=== PATIENT | female | born 1965 | race African-American/Black ===

== ENCOUNTER 2019-03-06 15:39 | Emergency (ER) | payer BC | END 2019-03-06 16:39 | disposition left against medical advice (07) | LOC: ERS 15:39 | DX: Z53.21 Procedure and treatment not carried out due to patient leaving prior to being seen by health care provider (principal) ==

== ENCOUNTER 2019-03-06 17:00 | Emergency (ER) | payer BC, SELFPAY ==
[2019-03-06] MEDS ORDERED: Ketorolac Tromethamine 60 MG/2 ML VIAL ONE (17:36)
--- NOTE | 2019-03-06 18:04 | RAD ---
LEFT SHOULDER RADIOGRAPHS THREE VIEWS: 03/06/2019 PROVIDED CLINICAL HISTORY: Left shoulder pain. FINDINGS: There is no evidence for fracture or other acute osseous abnormality. The glenohumeral relationship appears normal. The subacromial space appears preserved. The visualized left lung field appears fabiola ar. IMPRESSION: No evidence for an acute osseous abnormality. If there is persistent clinical concern, conservative management and follow-up imaging are advised. POS: [facility]
== END 2019-03-06 18:22 | disposition home or self-care (01) ==
LOC: SCSER 17:00
DX: M25.512 Pain in left shoulder (principal); I10 Essential (primary) hypertension; F17.210 Nicotine dependence, cigarettes, uncomplicated; Z79.899 Other long term (current) drug therapy
CPT/HCPCS: 96372; J1885

== ENCOUNTER 2019-12-28 12:27 | Outpatient (CLI) | payer BC, SELFPAY ==
--- NOTE | 2019-12-28 15:31 | MMO ---
Bilateral MAMMO Bilat Screen [facility]. CLINICAL HISTORY: Patient is 54 years old and is seen for screening. The patient has the following family history of breast cancer: sister, at age 45. The patient has no personal history of cancer. VIEWS: The views performed were: bilateral craniocaudal with tomosynthesis and bilateral mediolateral oblique with tomosynthesis. FILMS COMPARED: The present examination has been compared to prior imaging studies performed at [facility] on 03/01/2018, at [facility] on 01/03/2010, and at [facility] on 01/18/2001 and 10/08/2008. This study has been interpreted with the assistance of computer-aided detection. MAMMOGRAM FINDINGS: There are scattered fibroglandular densities. There are no suspicious masses, suspicious calcifications, or new areas of architectural distortion. IMPRESSION: THERE IS NO MAMMOGRAPHIC EVIDENCE OF MALIGNANCY. A ROUTINE FOLLOW-UP MAMMOGRAM IN 1 YEAR IS RECOMMENDED. THE RESULTS OF THIS EXAM WERE SENT TO THE PATIENT. ACR BI-RADS Category 1 - Negative MAMMOGRAPHY NOTE: 1. A negative mammogram report should not delay a biopsy if a dominant of clinically suspicious mass is present. 2. Approximately 10% to 15% of breast cancers are not detected by mammography. 3. Adenosis and dense breasts may obscure an underlying neoplasm. Reported by: RICH DUBOIS MD Electonically Signed: [id number]
== END 2019-12-28 12:28 | disposition home or self-care (01) ==
LOC: BICMAMMO 12:27
PROVIDERS: ATTEND Family Medicine
DX: Z12.31 Encounter for screening mammogram for malignant neoplasm of breast (principal); Z80.3 Family history of malignant neoplasm of breast
CPT/HCPCS: 77063; 77067

== ENCOUNTER 2021-01-28 11:01 | Outpatient (CLI) | payer BC | END 2021-01-28 11:02 | disposition home or self-care (01) | LOC: BICMAMMO 11:01 | PROVIDERS: ATTEND Family Medicine | DX: Z12.31 Encounter for screening mammogram for malignant neoplasm of breast (principal); Z80.3 Family history of malignant neoplasm of breast | CPT/HCPCS: 77063; 77067 ==

== ENCOUNTER 2022-02-02 09:15 | Outpatient (CLI) | payer BC | END 2022-02-02 09:16 | disposition home or self-care (01) | LOC: BICMAMMO 09:15 | PROVIDERS: ATTEND Family Medicine | DX: Z12.31 Encounter for screening mammogram for malignant neoplasm of breast (principal); Z80.3 Family history of malignant neoplasm of breast | CPT/HCPCS: 77063; 77067 ==

== ENCOUNTER 2022-08-12 18:00 | Outpatient (CLI) | payer BC | END 2022-08-12 18:01 | disposition home or self-care (01) | LOC: SLEEPLAB 18:00 | PROVIDERS: ATTEND Family Medicine | DX: G47.10 Hypersomnia, unspecified (principal); G47.9 Sleep disorder, unspecified; R53.83 Other fatigue; F41.9 Anxiety disorder, unspecified; E66.9 Obesity, unspecified; I10 Essential (primary) hypertension; G47.33 Obstructive sleep apnea (adult) (pediatric) | CPT/HCPCS: 95800 ==

== ENCOUNTER 2023-03-16 12:55 | Outpatient (CLI) | payer BC | END 2023-03-16 12:56 | disposition home or self-care (01) | LOC: BICMAMMO 12:55 | PROVIDERS: ATTEND Family Medicine | DX: Z12.31 Encounter for screening mammogram for malignant neoplasm of breast (principal); Z80.3 Family history of malignant neoplasm of breast | CPT/HCPCS: 77063; 77067 ==

== ENCOUNTER 2023-07-16 08:02 | Inpatient (IN) | payer BC ==
[2023-07-16 08:44] LABS: #Basophils 0.1 thou/uL (0.0-0.2); #Monocytes 0.7 thou/uL (0.11-0.59); #Neutrophils 5.5 thou/uL (1.40-6.50); %Basophils 0.8 % (0.0-1.0); %Eosinophils 0.1 % (0.0-10.0); %Lymphocytes 15.8 % (21.0-51.0); %Monocytes 9.1 % (0.0-10.0); %Neutrophils 73.9 % (42.0-75.0); Hemoglobin 14.6 g/dL (12.0-16.0); Mean Corpuscular Hemoglobin 33.6 pg (27.0-31.0); Mean Corpuscular Volume 99.1 fl (78.0-98.0); Platelet Count 238 10x3/uL (130-400); RBC Distribution Width 12.1 % (11.5-14.5); Red Blood Cell (RBC) Count 4.34 mill/uL (4.20-5.40); White Blood Cell (WBC) Count 7.5 10x3/uL (4.8-10.8)
[2023-07-16 09:07] LABS: Bacteria/HPF None Seen HPF (None Seen); Bilirubin Negative (Negative); Blood, Urine 3+ (Negative); CAUTI Indications for Culture Fever or rigors; Clarity Clear (Clear); Glucose, Urine (Dipstick) Normal (Negative); Ketone, Urine Trace mg/dL (Negative); Leukocyte Negative Leu/uL (Negative); Nitrite Negative (Negative); Protein, Urine (Dipstick) 200 mg/dL (Neg-Trace); Specific Gravity, Urine 1.026 (1.002-1.036); Urobilinogen Normal mg/dL (Less than 2)
[2023-07-16 09:10] LABS: Troponin I 0.044 ng/mL (< 0.028)
[2023-07-16 09:13] LABS: ALT (SGPT) 19 U/L (8-55); AST (SGOT) 50 U/L (5-34); Albumin 4.7 g/dL (3.5-5.0); Alkaline Phosphatase 104 U/L (40-110); Anion Gap 16 mmol/L (10-20); BUN (Urea Nitrogen) 8 mg/dL (9.8-20.1); Bilirubin, Total 0.8 mg/dL (0.2-1.2); Calc. Creatinine Clearance 0 mL/min (70-130); Calcium 9.5 mg/dL (7.8-10.44); Carbon Dioxide 21 mmol/L (22-29); Chloride 104 mmol/L (98-107); Estimated GFR 81; Globulin 3.5 g/dL (2.4-3.5); Glucose 101 mg/dL (70-105); Lipase 25 U/L (8-78); Magnesium 1.5 mg/dL (1.6-2.6); Potassium 3.5 mmol/L (3.5-5.1); Protein, Total 8.2 g/dL (6.0-8.3); Sodium 137 mmol/L (136-145)
[2023-07-16 09:21] LABS: Urine Culture Reflex No No
[2023-07-16] MEDS ORDERED: cefTRIAXone (ROCEPHIN) 2 GM VIAL ONE (09:45)
[2023-07-16] MEDS ORDERED: Sodium Chloride 0.9% 100 ML ONE (09:45)
[2023-07-16] MEDS ORDERED: Aspirin Chewable 81 MG TAB ONE (10:33)
[2023-07-16] MEDS ORDERED: Iopamidol-370 76% 500 ML MDV (1 ML CHARGE) ONE (10:57)
[2023-07-16] MEDS ORDERED: Acetaminophen 500 MG TAB ONE (11:14)
[2023-07-16] MEDS ORDERED: Magnesium 2 GM/50 ML BAG (IN WATER) ONE (12:49)
[2023-07-16] MEDS ORDERED: Acetaminophen 325 MG TAB PO PRN (13:40)
[2023-07-16] MEDS ORDERED: Ondansetron PF 4 MG/2 ML Vial IVP PRN (13:40)
[2023-07-16] MEDS ORDERED: Ipratropium/Albuterol 3 ML NEB NEB PRN (13:41)
[2023-07-16] MEDS ORDERED: Acetaminophen W/ Codeine 5 ML UDCUP PO PRN (14:21)
[2023-07-16] MEDS ORDERED: Magnesium 2 GM/50 ML(in water) 2 GM in Premix 1 BAG IVPB SCH (14:30)
[2023-07-16 14:31] LABS: Analyzer IN Cardio ER
[2023-07-16 14:32] LABS: Actual Bicarbonate (HCO3v) 22.6 mEq/L (22-28); Base Excess -1.1 mEq/L (-2.0 to +3.0); Calcium, Ionized (venous) 1.09 mmol/L (1.16-1.32); Chloride (VBG) 105 mmol/L (98-106); Hematocrit-VBG 43 % (36.0-47.0); Hemoglobin (Hb) 14.5 g/dL (11.7-16.0); Potassium (VBG) 3.54 mmol/L (3.70-5.30); Sodium 141 mmol/L (133-146); pH (venous) 7.426 (7.32-7.43)
[2023-07-16 14:52] LABS: Troponin I 0.085 ng/mL (< 0.028)
[2023-07-16 16:03] LABS: SARS-CoV-2 NAA Rapid Test Not Detected (NotDetected)
[2023-07-16] MEDS: Azithromycin 500 MG in Sodium Chloride 0.9% 250 ML 250 ML IVPB SCH (17:21)
[2023-07-16 17:58] LABS: Troponin I 0.093 ng/mL (< 0.028)
[2023-07-16 20:40] LABS: Troponin I 0.092 ng/mL (< 0.028)
[2023-07-17] MEDS ORDERED: Carvedilol 3.125 MG TAB PO SCH (00:45)
[2023-07-17] MEDS ORDERED: Acetaminophen 500 MG TAB PO SCH (00:45)
[2023-07-17] MEDS ORDERED: Amlodipine 10 MG TAB PO SCH ×2 (00:45→15:00)
[2023-07-17] MEDS ORDERED: Ibuprofen 600 MG TAB PO SCH (00:45)
[2023-07-17] MEDS: Benzonatate 100 MG CAP PO PRN ×3 (00:47→20:11)
[2023-07-17 05:20] LABS: #Monocytes 0.5 thou/uL (0.11-0.59); #Neutrophils 2.5 thou/uL (1.40-6.50); %Basophils 0.6 % (0.0-1.0); %Lymphocytes 35.1 % (21.0-51.0); %Neutrophils 53.1 % (42.0-75.0); Hematocrit 43.5 % (36.0-47.0); Hemoglobin 14.3 g/dL (12.0-16.0); Mean Corpuscular HGB CONC 32.9 g/dL (32.0-36.0); Mean Corpuscular Hemoglobin 32.9 pg (27.0-31.0); Mean Platelet Volume 9.6 fL (7.4-10.4); Platelet Count 200 10x3/uL (130-400); RBC Distribution Width 12.3 % (11.5-14.5); Red Blood Cell (RBC) Count 4.35 mill/uL (4.20-5.40); White Blood Cell (WBC) Count 4.7 10x3/uL (4.8-10.8)
[2023-07-17 05:47] LABS: Anion Gap 17 mmol/L (10-20); BUN (Urea Nitrogen) 9 mg/dL (9.8-20.1); Calc. Creatinine Clearance 120 mL/min (70-130); Calcium 8.7 mg/dL (7.8-10.44); Carbon Dioxide 20 mmol/L (22-29); Chloride 105 mmol/L (98-107); Estimated GFR 89; Glucose 78 mg/dL (70-105); Potassium 3.7 mmol/L (3.5-5.1); Sodium 138 mmol/L (136-145)
[2023-07-17] MEDS: cefTRIAXone\\ROCEPHIN 1 GM in Sodium Chloride 0.9% 100 ML IVPB SCH (09:23)
[2023-07-17] MEDS: GUAIFENESIN SF SOLN 200 MG/10 ML UDCUP PO PRN ×2 (09:34→20:11)
[2023-07-17] MEDS ORDERED: Oseltamivir 75 MG CAP PO SCH (09:39)
[2023-07-17] MEDS ORDERED: clonazePAM 0.5 MG TAB PO SCH (09:55)
[2023-07-17] MEDS ORDERED: Hydrochlorothiazide 25 MG TAB PO SCH (09:55)
[2023-07-17] MEDS: HYDROcodone/Acetaminophen 5/325 mg Tablet PO PRN ×2 (12:40→20:17)
[2023-07-17] MEDS: Azithromycin 500 MG in Sodium Chloride 0.9% 250 ML 250 ML IVPB SCH (14:50)
[2023-07-17 15:49] LABS: Magnesium 2.2 mg/dL (1.6-2.6)
[2023-07-17] MEDS: Carvedilol 3.125 MG TAB PO SCH (17:05)
[2023-07-17] MEDS: clonazePAM 0.5 MG TAB PO SCH (20:11)
[2023-07-17] MEDS: Oseltamivir 75 MG CAP PO SCH (20:12)
[2023-07-18] MEDS: Benzonatate 100 MG CAP PO PRN ×2 (04:04→20:57)
[2023-07-18] MEDS: HYDROcodone/Acetaminophen 5/325 mg Tablet PO PRN ×3 (04:04→20:55)
[2023-07-18 05:24] LABS: #Monocytes 0.6 thou/uL (0.11-0.59); %Basophils 0.4 % (0.0-1.0); %Eosinophils 0.2 % (0.0-10.0); %Lymphocytes 42.4 % (21.0-51.0); %Monocytes 13.2 % (0.0-10.0); %Neutrophils 43.6 % (42.0-75.0); Hematocrit 45.4 % (36.0-47.0); Hemoglobin 15.1 g/dL (12.0-16.0); Mean Corpuscular HGB CONC 33.3 g/dL (32.0-36.0); Mean Corpuscular Hemoglobin 33.3 pg (27.0-31.0); Mean Platelet Volume 9.6 fL (7.4-10.4); Platelet Count 223 10x3/uL (130-400); RBC Distribution Width 12.3 % (11.5-14.5); Red Blood Cell (RBC) Count 4.54 mill/uL (4.20-5.40); White Blood Cell (WBC) Count 4.5 10x3/uL (4.8-10.8)
[2023-07-18 05:47] LABS: Anion Gap 15 mmol/L (10-20); BUN (Urea Nitrogen) 8 mg/dL (9.8-20.1); Calc. Creatinine Clearance 123 mL/min (70-130); Carbon Dioxide 23 mmol/L (22-29); Chloride 101 mmol/L (98-107); Estimated GFR 91; Glucose 86 mg/dL (70-105); Potassium 3.5 mmol/L (3.5-5.1); Sodium 135 mmol/L (136-145)
[2023-07-18] MEDS ORDERED: Carvedilol 6.25 MG TAB PO SCH (09:00)
[2023-07-18] MEDS: Carvedilol 3.125 MG TAB PO SCH (09:52)
[2023-07-18] MEDS: cefTRIAXone\\ROCEPHIN 1 GM in Sodium Chloride 0.9% 100 ML IVPB SCH (09:53)
[2023-07-18] MEDS: Oseltamivir 75 MG CAP PO SCH ×2 (09:54→20:54)
[2023-07-18] MEDS: Amlodipine 10 MG TAB PO SCH (09:54)
[2023-07-18] MEDS: clonazePAM 0.5 MG TAB PO SCH ×2 (09:54→20:55)
[2023-07-18] MEDS: Magnesium Oxide 400 MG TAB PO SCH (09:55)
[2023-07-18] MEDS: Hydrochlorothiazide 25 MG TAB PO SCH (09:55)
[2023-07-18] MEDS: Azithromycin 500 MG in Sodium Chloride 0.9% 250 ML 250 ML IVPB SCH (15:21)
[2023-07-18] MEDS: Carvedilol 6.25 MG TAB PO SCH (16:57)
[2023-07-19 06:16] LABS: #Monocytes 0.5 thou/uL (0.11-0.59); #Neutrophils 1.2 thou/uL (1.40-6.50); %Basophils 0.3 % (0.0-1.0); %Eosinophils 0.3 % (0.0-10.0); %Lymphocytes 51.7 % (21.0-51.0); %Monocytes 15.1 % (0.0-10.0); %Neutrophils 32.6 % (42.0-75.0); Hematocrit 44.4 % (36.0-47.0); Hemoglobin 14.7 g/dL (12.0-16.0); Mean Corpuscular HGB CONC 33.1 g/dL (32.0-36.0); Mean Corpuscular Hemoglobin 32.9 pg (27.0-31.0); Mean Corpuscular Volume 99.3 fl (78.0-98.0); Mean Platelet Volume 9.5 fL (7.4-10.4); Platelet Count 220 10x3/uL (130-400); Red Blood Cell (RBC) Count 4.47 mill/uL (4.20-5.40); White Blood Cell (WBC) Count 3.5 10x3/uL (4.8-10.8)
[2023-07-19 06:41] LABS: Anion Gap 16 mmol/L (10-20); BUN (Urea Nitrogen) 14 mg/dL (9.8-20.1); Calc. Creatinine Clearance 121 mL/min (70-130); Calcium 9.1 mg/dL (7.8-10.44); Carbon Dioxide 24 mmol/L (22-29); Chloride 101 mmol/L (98-107); Estimated GFR 90; Glucose 85 mg/dL (70-105); Potassium 3.5 mmol/L (3.5-5.1); Sodium 137 mmol/L (136-145)
[2023-07-19] MEDS: Carvedilol 6.25 MG TAB PO SCH (08:35)
[2023-07-19] MEDS: clonazePAM 0.5 MG TAB PO SCH (08:35)
[2023-07-19] MEDS: Magnesium Oxide 400 MG TAB PO SCH (08:35)
[2023-07-19] MEDS: Hydrochlorothiazide 25 MG TAB PO SCH (08:36)
[2023-07-19] MEDS: Benzonatate 100 MG CAP PO PRN (08:36)
[2023-07-19] MEDS: Amlodipine 10 MG TAB PO SCH (08:36)
[2023-07-19] MEDS: HYDROcodone/Acetaminophen 5/325 mg Tablet PO PRN (08:36)
[2023-07-19] MEDS: Oseltamivir 75 MG CAP PO SCH (08:36)
[2023-07-19] MEDS ORDERED: FLU VACC QS2023-24(6MOS UP)/PF 60 MCG/0.5 ML SYRINGE IM ONE (09:00)
[2023-07-19] MEDS: cefTRIAXone\\ROCEPHIN 1 GM in Sodium Chloride 0.9% 100 ML IVPB SCH (09:10)
[2023-07-19 11:55] VITALS: BP 112/70; TEMP 98.7
== END 2023-07-19 14:13 | disposition home or self-care (01) | DRG 193 ==
LOC: ERS 08:02 → SUATTDRO 08:02 → 2NO 13:36
PROVIDERS: ADMIT Internal Medicine; ATTEND Internal Medicine
DX: J10.08 Influenza due to other identified influenza virus with other specified pneumonia (principal); I21.A1 Myocardial infarction type 2; I10 Essential (primary) hypertension; J15.9 Unspecified bacterial pneumonia; K21.9 Gastro-esophageal reflux disease without esophagitis; E83.42 Hypomagnesemia; F41.1 Generalized anxiety disorder; R53.1 Weakness; Z11.52 Encounter for screening for COVID-19; Z79.899 Other long term (current) drug therapy
CPT/HCPCS: 36415; 71045; 71275; 80048; 80053; 81001; 82805; 83605; 83690; 83735; 83880; 84484; 85025; 85379; 87040; 87633; 87798; 93005; 93010; 94640; 94760; 96365; 96367; J0456; J0696; J1650; J3475; J3490; J7050; J7611; J7620

== ENCOUNTER 2024-02-11 08:40 | Outpatient (CLI) | payer BC | END 2024-02-11 08:41 | disposition home or self-care (01) | LOC: RAD 08:40 | PROVIDERS: ATTEND Family Medicine | DX: R05.1 Acute cough (principal) | CPT/HCPCS: 71046 ==

== ENCOUNTER 2024-06-11 09:28 | Emergency (ER) | payer BC ==
[2024-06-11] MEDS ORDERED: Dicyclomine 20 MG TAB ONE (10:01)
[2024-06-11 10:12] LABS: #Basophils Less than 0.03 10x3/uL (0.0-0.2); %Basophils 0.2 % (0.0-1.0); %Eosinophils 3.3 % (0.0-10.0); %Lymphocytes 45.9 % (21.0-51.0); %Monocytes 6.5 % (0.0-10.0); %Neutrophils 43.9 % (42.0-75.0); Hematocrit 42.5 % (36.0-47.0); Hemoglobin 14.1 g/dL (12.0-16.0); Mean Corpuscular HGB CONC 33.2 g/dL (32.0-36.0); Mean Corpuscular Hemoglobin 32.6 pg (27.0-31.0); Mean Corpuscular Volume 98.2 fL (78.0-98.0); Platelet Count 277 10x3/uL (130-400); RBC Distribution Width 11.9 % (11.5-14.5); Red Blood Cell (RBC) Count 4.33 mill/uL (4.20-5.40)
[2024-06-11 10:31] LABS: ALT (SGPT) 10 U/L (8-55); AST (SGOT) 15 U/L (5-34); Albumin 3.9 g/dL (3.5-5.0); Alkaline Phosphatase 79 U/L (40-110); Anion Gap 13 mmol/L (10-20); BUN (Urea Nitrogen) 8 mg/dL (9.8-20.1); Bilirubin, Total 0.4 mg/dL (0.2-1.2); Calc. Creatinine Clearance 0 mL/min (70-130); Calcium 9.4 mg/dL (7.8-10.44); Carbon Dioxide 25 mmol/L (22-29); Chloride 109 mmol/L (98-107); Estimated GFR 97; Globulin 3.2 g/dL (2.4-3.5); Glucose 118 mg/dL (70-105); Lipase 29 U/L (8-78); Potassium 3.6 mmol/L (3.5-5.1); Protein, Total 7.1 g/dL (6.0-8.3); Sodium 143 mmol/L (136-145)
[2024-06-11] MEDS ORDERED: Iopamidol-370 76% 500 ML MDV (1 ML CHARGE) ONE (10:33)
[2024-06-11] MEDS ORDERED: Lorazepam 2 MG/ML VIAL ONE (10:39)
[2024-06-11 11:11] LABS: Bilirubin Negative (Negative); Blood, Urine Negative (Negative); CAUTI Indications for Culture Pelvic or flank pain; Clarity Clear (Clear); Glucose, Urine (Dipstick) Normal (Negative); Ketone, Urine Negative (Negative); Leukocyte 75 Leu/uL (Negative); Nitrite Negative (Negative); Protein, Urine (Dipstick) Negative (Neg-Trace); RBC/HPF 0-3 HPF (0-3)
[2024-06-11 11:18] LABS: Bacteria/HPF 1+ HPF (None Seen)
[2024-06-11 11:19] LABS: Urine Culture Reflex Yes Yes
== END 2024-06-11 12:00 | disposition home or self-care (01) ==
LOC: ERS 09:28
DX: N39.0 Urinary tract infection, site not specified (principal); R19.7 Diarrhea, unspecified; I10 Essential (primary) hypertension; E78.5 Hyperlipidemia, unspecified; F17.210 Nicotine dependence, cigarettes, uncomplicated; Z79.899 Other long term (current) drug therapy
CPT/HCPCS: 36415; 74177; 80053; 81001; 83605; 83690; 85025; 87086; 96361; 96374; J2060; Q9967

== ENCOUNTER 2024-07-11 01:00 | Emergency (ER) | payer BC ==
[2024-07-11] MEDS ORDERED: HYDROcodone/Acetaminophen 5/325 mg Tablet ONE (01:26)
[2024-07-11] MEDS ORDERED: Cyclobenzaprine 10 MG TAB ONE (01:26)
[2024-07-11] MEDS ORDERED: Lidocaine 4% Patch ONE (01:30)
[2024-07-11] MEDS ORDERED: Diazepam 5 MG TAB ONE (02:37)
== END 2024-07-11 02:45 | disposition home or self-care (01) ==
LOC: ERS 01:00
DX: M54.31 Sciatica, right side (principal); I10 Essential (primary) hypertension; F17.210 Nicotine dependence, cigarettes, uncomplicated
CPT/HCPCS: 99282

== ENCOUNTER 2025-03-06 08:26 | Outpatient (CLI) | payer BC | END 2025-03-06 08:27 | disposition home or self-care (01) | LOC: BICMAMMO 08:26 | PROVIDERS: ATTEND Family Medicine | DX: Z12.31 Encounter for screening mammogram for malignant neoplasm of breast (principal); Z80.3 Family history of malignant neoplasm of breast | CPT/HCPCS: 77063; 77067 ==

== ENCOUNTER 2025-04-26 09:18 | Outpatient (CLI) | payer BC ==
[2025-04-26 10:53] LABS: #Basophils 0.04 10x3/uL (0.0-0.2); #Eosinophils 0.16 10x3/uL (0.0-0.7); #Monocytes 0.45 10x3/uL (0.11-0.59); #Neutrophils 2.48 10x3/uL (1.40-6.50); %Basophils 0.7 % (0.0-1.0); %Eosinophils 2.6 % (0.0-10.0); %Lymphocytes 47.9 % (21.0-51.0); %Monocytes 7.4 % (0.0-10.0); %Neutrophils 41.1 % (42.0-75.0); Hematocrit 43.0 % (36.0-47.0); Hemoglobin 14.6 g/dL (12.0-16.0); Mean Corpuscular Hemoglobin 33.0 pg (27.0-31.0); Mean Corpuscular Volume 97.1 fL (78.0-98.0); Platelet Count 276 10x3/uL (130-400); Red Blood Cell (RBC) Count 4.43 mill/uL (4.20-5.40); White Blood Cell (WBC) Count 6.05 10x3/uL (4.8-10.8)
[2025-04-26 11:44] LABS: ALT (SGPT) 10 U/L (Less than 34); AST (SGOT) 20 U/L (11-34); Albumin 4.4 g/dL (3.1-4.5); Alkaline Phosphatase 77 U/L (40-110); Anion Gap 18 mmol/L (10-20); BUN (Urea Nitrogen) 11 mg/dL (9.8-20.1); Bilirubin, Total 0.5 mg/dL (0.3-1.2); Calc. Creatinine Clearance 0 mL/min (70-130); Calcium 9.7 mg/dL (7.8-10.44); Carbon Dioxide 27 mmol/L (22-29); Chloride 100 mmol/L (98-107); Globulin 3.1 g/dL (2.4-3.5); Glucose 106 mg/dL (70-105); Potassium 3.6 mmol/L (3.5-5.1); Sodium 141 mmol/L (136-145)
[2025-04-26 11:45] LABS: Cardiac Risk 2.8 (Less than 4.5); Cholesterol 93.0 mg/dl (< 200 Desired); HDL Cholesterol 33.0 mg/dL (>60 Neg Risk); LDL Cholesterol, Calculated 49.0 mg/dL; Triglycerides 55.0 mg/dL (Less than 150)
== END 2025-04-26 09:19 | disposition home or self-care (01) ==
LOC: LABBT 09:18
PROVIDERS: ATTEND Internal Medicine Cardiovascular Disease
DX: Z01.818 Encounter for other preprocedural examination (principal); I35.0 Nonrheumatic aortic (valve) stenosis
CPT/HCPCS: 71045; 80053; 80061; 85025; 93005; 93010

== ENCOUNTER 2025-04-27 05:58 | Day surgery (SDC) | payer BC ==
[2025-04-26 09:38] VITALS: BMI 36.7
[2025-04-27] MEDS ORDERED: Adenosine 6 mg (2 mL) VIAL ONE (07:33)
[2025-04-27] MEDS ORDERED: EPINEPHrine 1 MG/10 ML Abboject SYRINGE ONE (07:33)
[2025-04-27] MEDS ORDERED: Lidocaine 1% (PF) 30 ML VIAL ONE (07:33)
[2025-04-27] MEDS ORDERED: Heparin 10,000 UNITS/ 10 ML VIAL ONE (07:33)
[2025-04-27] MEDS ORDERED: Nitroglycerin 50 MG/250 ML BOT 250 ML ONE (07:34)
[2025-04-27] MEDS ORDERED: PHENYLEPHRINE-NS 100 MCG/ML 10 ML SYRINGE ONE (07:34)
[2025-04-27] MEDS ORDERED: Iopamidol 370 76% 100 ML VIAL ONE (13:36)
== END 2025-04-27 15:06 | disposition home or self-care (01) ==
LOC: SDC 05:58
PROVIDERS: ATTEND Internal Medicine Cardiovascular Disease
PROC: 4A023N7 Measurement of Cardiac Sampling and Pressure, Left Heart, Percutaneous Approach (ICD-10-PCS; principal; 2025-04-27)
DX: I35.0 Nonrheumatic aortic (valve) stenosis (principal); I10 Essential (primary) hypertension; E11.9 Type 2 diabetes mellitus without complications; E78.5 Hyperlipidemia, unspecified; F41.9 Anxiety disorder, unspecified; F98.8 Other specified behavioral and emotional disorders with onset usually occurring in childhood and adolescence; Z90.710 Acquired absence of both cervix and uterus; Z90.49 Acquired absence of other specified parts of digestive tract; Z79.899 Other long term (current) drug therapy
CPT/HCPCS: 93458; 99152; 99153; J0153; J0165; J0461; J1644; J2250; Q9967